=== PATIENT | male | born 1995 | race Caucasian/White ===

== ENCOUNTER 2018-04-28 19:19 | Emergency (ER) | payer SELFPAY | END 2018-04-28 21:00 | disposition left against medical advice (07) | LOC: FTE 19:19 | DX: Z53.21 Procedure and treatment not carried out due to patient leaving prior to being seen by health care provider (principal) ==

== ENCOUNTER 2018-04-29 11:56 | Emergency (ER) | payer SELFPAY | END 2018-04-29 14:11 | disposition home or self-care (01) | LOC: FTE 11:56 | DX: S51.851A Open bite of right forearm, initial encounter (principal); F17.210 Nicotine dependence, cigarettes, uncomplicated; W54.0XXA Bitten by dog, initial encounter; Y92.9 Unspecified place or not applicable | CPT/HCPCS: 99283 ==